=== PATIENT | male | born 1965 | race African-American/Black ===

== ENCOUNTER 2021-09-24 20:11 | Observation (INO) | payer MEDICARE ==
[2021-09-24 20:59] LABS: #Basophils 0.1 thou/uL (0.0-0.2); #Eosinphils 0.2 thou/uL (0.0-0.7); #Lymphocytes 2.9 thou/uL (1.20-3.40); #Monocytes 0.6 thou/uL (0.11-0.59); #Neutrophils 3.2 thou/uL (1.40-6.50); %Basophils 0.8 % (0.0-1.0); %Eosinophils 2.9 % (0.0-10.0); %Lymphocytes 41.6 % (21.0-51.0); %Monocytes 8.7 % (0.0-10.0); %Neutrophils 45.9 % (42.0-75.0); Mean Corpuscular HGB CONC 32.6 g/dL (32.0-36.0); Mean Corpuscular Hemoglobin 31.6 pg (27.0-31.0); Mean Platelet Volume 7.3 fL (7.4-10.4); Platelet Count 199 thou/uL (130-400); RBC Distribution Width 12.7 % (11.5-14.5); Red Blood Cell (RBC) Count 4.12 mill/uL (4.70-6.10); White Blood Cell (WBC) Count 6.9 thou/uL (4.8-10.8)
[2021-09-24 21:20] LABS: ALT (SGPT) 133 U/L (8-55); AST (SGOT) 163 U/L (5-34); Albumin 3.6 g/dL (3.5-5.0); Alkaline Phosphatase 103 U/L (40-110); Anion Gap 17 mmol/L (10-20); BUN (Urea Nitrogen) 11 mg/dL (8.4-25.7); Bilirubin, Total 0.6 mg/dL (0.2-1.2); Calc. Creatinine Clearance 0 mL/min (70-130); Calcium 9.2 mg/dL (7.8-10.44); Carbon Dioxide 19 mmol/L (22-29); Chloride 102 mmol/L (98-107); Glucose 384 mg/dL (70-105); Protein, Total 7.6 g/dL (6.0-8.3); Sodium 134 mmol/L (136-145)
[2021-09-24 22:02] LABS: Bacteria/HPF None Seen HPF (None Seen); Bilirubin Negative (Negative); Blood, Urine Negative (Negative); Clarity Clear (Clear); Glucose, Urine (Dipstick) Greater than 1000 mg/dL (Negative); Ketone, Urine Negative (Negative); Leukocyte Negative Leu/uL (Negative); Nitrite Negative (Negative); Protein, Urine (Dipstick) 50 mg/dL (Neg-Trace); RBC/HPF 0-3 HPF (0-3); Specific Gravity, Urine 1.031 (1.002-1.036); Squamous Epithelial None Seen HPF (0-3); WBC/HPF 0-3 HPF (0-3)
[2021-09-24] MEDS ORDERED: Piperacillin/Tazobactam 4.5 GM VIAL ONE (23:49)
[2021-09-25] MEDS ORDERED: Acetaminophen 325 MG TAB PO PRN (00:15)
[2021-09-25] MEDS ORDERED: Ondansetron PF 4 MG/2 ML Vial IVP PRN (00:15)
[2021-09-25] MEDS ORDERED: Dextrose 50% Abboject 50 ML SYRINGE SLOW IVP PRN (00:16)
[2021-09-25] MEDS ORDERED: Dextrose 5% in Water 1,000 ML IV PRN (00:16)
[2021-09-25] MEDS ORDERED: HumaLOG 300 UNITS/3 ML VIAL SC PRN ×2 (00:16)
[2021-09-25 00:23] LABS: Acetaminophen Less than 10.0 mcg/mL (10.0-30.0); Alcohol Less than 10 mg/dL (Less than 10); Salicylate Less than 8.0 mg/dL (15.0-30.0)
[2021-09-25] MEDS ORDERED: Gabapentin 400 MG CAP PO SCH (01:00)
[2021-09-25] MEDS ORDERED: Vancomycin 1 GM in Premix Bag 1 BAG IVPB SCH (01:00)
[2021-09-25 01:28] LABS: Lactic Acid 1.9 mmol/L (0.5-2.2)
[2021-09-25] MEDS ORDERED: Sodium Chloride 0.9% 250 ML IV SCH (01:30)
[2021-09-25 03:31] LABS: Amphetamine Not Detected (NotDetected); Barbiturates Screen Not Detected (NotDetected); Benzodiazepine Screen Not Detected (NotDetected); Cocaine Metabolite Screen Not Detected (NotDetected); Methadone Not Detected (NotDetected); Methamphetamine Detected (NotDetected); Opiate Screen Not Detected (NotDetected); Oxycodone Screen Not Detected (NotDetected); Phencyclidine (PCP) Not Detected (NotDetected); THC/Cannabinoid Screen Detected (NotDetected); Tricyclic Screen Not Detected (NotDetected)
[2021-09-25 06:37] LABS: #Eosinphils 0.3 thou/uL (0.0-0.7); #Lymphocytes 2.3 thou/uL (1.20-3.40); #Monocytes 0.7 thou/uL (0.11-0.59); #Neutrophils 2.3 thou/uL (1.40-6.50); %Basophils 0.2 % (0.0-1.0); %Eosinophils 4.7 % (0.0-10.0); %Lymphocytes 41.5 % (21.0-51.0); %Monocytes 12.3 % (0.0-10.0); %Neutrophils 41.3 % (42.0-75.0); Mean Corpuscular HGB CONC 32.1 g/dL (32.0-36.0); Mean Corpuscular Hemoglobin 31.4 pg (27.0-31.0); Mean Corpuscular Volume 97.7 fL (78.0-98.0); Mean Platelet Volume 7.3 fL (7.4-10.4); Platelet Count 189 thou/uL (130-400); RBC Distribution Width 12.7 % (11.5-14.5); Red Blood Cell (RBC) Count 4.15 mill/uL (4.70-6.10); White Blood Cell (WBC) Count 5.6 thou/uL (4.8-10.8)
[2021-09-25 06:50] VITALS: BMI 20.8
[2021-09-25 07:08] LABS: ALT (SGPT) 120 U/L (8-55); AST (SGOT) 135 U/L (5-34); Albumin 3.3 g/dL (3.5-5.0); Alkaline Phosphatase 87 U/L (40-110); Anion Gap 10 mmol/L (10-20); BUN (Urea Nitrogen) 11 mg/dL (8.4-25.7); Bilirubin, Total 1.2 mg/dL (0.2-1.2); Calc. Creatinine Clearance 93 mL/min (70-130); Calcium 8.7 mg/dL (7.8-10.44); Carbon Dioxide 23 mmol/L (22-29); Chloride 104 mmol/L (98-107); Globulin 3.8 g/dL (2.4-3.5); Glucose 245 mg/dL (70-105); Potassium 3.9 mmol/L (3.5-5.1); Protein, Total 7.1 g/dL (6.0-8.3); Sodium 133 mmol/L (136-145)
[2021-09-25 07:18] VITALS: TEMP 98.4
[2021-09-25] MEDS ORDERED: glipiZIDE 10 MG TAB PO SCH (07:30)
[2021-09-25] MEDS ORDERED: Alogliptin 6.25 MG TAB PO SCH (08:00)
[2021-09-25] MEDS ORDERED: Carvedilol 6.25 MG TAB PO SCH (08:00)
[2021-09-25] MEDS ORDERED: metFORMIN 500 MG TAB PO SCH (08:00)
[2021-09-25] MEDS: Gabapentin 400 MG CAP PO SCH ×2 (08:02→12:54)
[2021-09-25] MEDS ORDERED: Enoxaparin Sodium 40 MG/0.4 ML SYRINGE SC SCH (09:00)
[2021-09-25] MEDS ORDERED: Lisinopril 10 MG TAB PO SCH (09:00)
[2021-09-25] MEDS ORDERED: Insulin Glargine 30 UNITS/0.3 ML VIAL SC SCH (09:00)
[2021-09-25] MEDS ORDERED: Thiamine 100 MG TAB PO SCH (09:00)
[2021-09-25] MEDS ORDERED: Aspirin 81 mg Enteric Coated Tablet PO SCH (09:00)
[2021-09-25] MEDS ORDERED: Furosemide 20 MG TAB PO SCH (09:00)
[2021-09-25] MEDS ORDERED: Folic Acid 1 MG TAB PO SCH (09:00)
[2021-09-25 11:52] VITALS: BP 176/79
[2021-09-25 12:13] LABS: SARS-CoV-2 PCR by NAA Not Detected (NotDetected)
== END 2021-09-25 14:16 | disposition home or self-care (01) ==
LOC: ERS 20:11 → ERHOLD 09-25 00:03 → IMCU/EMU 09-25 06:12
PROVIDERS: ADMIT Internal Medicine; ATTEND Family Medicine
DX: F19.11 Other psychoactive substance abuse, in remission (principal); I42.9 Cardiomyopathy, unspecified; G92.8 Other toxic encephalopathy; E87.2 Acidosis; Z20.822 Contact with and (suspected) exposure to COVID-19; I11.0 Hypertensive heart disease with heart failure; I50.22 Chronic systolic (congestive) heart failure; E11.40 Type 2 diabetes mellitus with diabetic neuropathy, unspecified; E11.22 Type 2 diabetes mellitus with diabetic chronic kidney disease; E78.5 Hyperlipidemia, unspecified; I25.10 Atherosclerotic heart disease of native coronary artery without angina pectoris; D64.9 Anemia, unspecified; F17.210 Nicotine dependence, cigarettes, uncomplicated; Z79.84 Long term (current) use of oral hypoglycemic drugs; Z79.899 Other long term (current) drug therapy; Z95.5 Presence of coronary angioplasty implant and graft; Z95.810 Presence of automatic (implantable) cardiac defibrillator; Z91.14 Patient's other noncompliance with medication regimen
CPT/HCPCS: 71045; 80306; 80307; 82140; 82550; 82962; 83605; 83880; 84484; 87040; 87086; 93005; 93923; 93970; 96365; 96372; 96375; 99285; G0378 ×2; U0003; U0005; 36415; 36416; 80053; 81003; 81015; 84443; 85025; J1650; J1815; J2543; J3370; J7030